=== PATIENT | female | born 1940 | race Caucasian/White ===

== ENCOUNTER 2018-05-15 10:56 | Day surgery (SDC) | payer OTHER, MEDICAID, MEDICARE ==
[2018-05-15] MEDS: CEFAZOLIN 2 GM/50 ML (PMX) 50 ML IVPB ×2 (07:00→14:29)
[2018-05-15] MEDS: SOD CHLORIDE 0.9% 1,000 ML IV (07:00)
[~2018-05-15 10:56] MED LIST: SOD CHLORIDE 0.9% 1,000 ML IV
[2018-05-15] MEDS ORDERED: LIDOCAINE 2% (SDV) 5 ML INJ (13:16)
[2018-05-15] MEDS ORDERED: MIDAZOLAM 1 MG/ML 2 ML INJ (13:16)
[2018-05-15] MEDS ORDERED: ETOMIDATE 20 MG INJ (13:16)
[2018-05-15] MEDS ORDERED: CEFAZOLIN 1 GM INJ (13:26)
[2018-05-15] MEDS ORDERED: FENTAnyl 50 MCG/ML VIAL (13:35)
[2018-05-15] MEDS: BUPIVACAINE 0.5%/EPI (SDV) 30 ML INJ (13:55)
[2018-05-15] MEDS ORDERED: MEPERIDINE 25 MG INJ (14:27)
[2018-05-15] MEDS ORDERED: ONDANSETRON 4 MG INJ (14:27)
[2018-05-15] MEDS ORDERED: HYDROmorphONE 1 MG/5 ML IV SYRINGE IV (14:30)
[2018-05-15] MEDS ORDERED: LABETALOL HCL 20MG INJ IV (14:30)
[2018-05-15] MEDS ORDERED: hydrALAzine 20 MG INJ IV (14:30)
== END 2018-05-15 16:06 | disposition home or self-care (01) ==
LOC: SDS 10:56
DX: D21.3 Benign neoplasm of connective and other soft tissue of thorax (principal); I10 Essential (primary) hypertension
CPT/HCPCS: 14000; 88307; 88361